=== PATIENT | female | born 1975 | race Caucasian/White ===

== ENCOUNTER 2017-05-27 12:38 | Emergency (ER) | payer BC, OTHER, MEDICAID ==
[~2017-05-27] VITALS: Ht 167.6 cm; Wt 102.1 kg
[~2017-05-27 12:38] MED LIST: FLAGYL500 MG PO; FLONASE 0.05%50 MCG NASAL; GLUCOPHAGE XR500 MG; GLUCOTROL5 MG; HYDROXYZINE HCL25 M1 PO; INPEN (FOR HUM1 EACH SQ; KEFLEX500 M1 PO; NEURONTIN 300300 M1 PO; ZOLOFT50 MG PO
[2017-05-27 13:10] LABS: URINE BILIRUBIN NEGATIVE (Negative); URINE BLOOD NEGATIVE (Negative); URINE CLARITY SL CLOUDY; URINE COLOR YELLOW; URINE GLUCOSE-RANDOM 2+ (Negative); URINE KETONES NEGATIVE (Negative); URINE LEUKOCYTES-REFLEX NEGATIVE (Negative); URINE NITRITE-REFLEX NEGATIVE (Negative); URINE PROTEIN TRACE (Negative); URINE SPECIFIC GRAVITY >= 1.030 (1.005-1.030); URINE UROBILINOGEN 0.2 E.U./dl (0.2-1.0)
[2017-05-27 13:21] LABS: INFLUENZA A ANTIGEN None Detected (None Detect); INFLUENZA B ANTIGEN None Detected (None Detect)
[2017-05-27 13:33] LABS: BACTERIA-REFLEX 1-9 Few /HPF (None Seen); CASTS None Seen /LPF (None Seen); CRYSTALS None Seen /LPF (None Seen); MUCUS 4-6 Moderate strn/LPF (None Seen); SQUAMOUS 0-3 Few /LPF (0-3); URINE RBC 0-2 Rare /HPF (0-2); URINE WBC-REFLEX 0-5 Rare /HPF (0-5)
[2017-05-27] MEDS ORDERED: DIFLUCAN150 MG PO (13:45)
[2017-05-27] MEDS ORDERED: DOXYCYCLINE 10100 M1 PO (13:45)
[2017-05-27] MEDS ORDERED: PROAIR HFA8.5 GM INH (13:47)
[2017-05-27 13:53] VITALS: BP 115/72
== END 2017-05-27 13:54 | disposition home or self-care (01) ==
LOC: M.ERS 12:38
PROVIDERS: Nurse Practitioner Family
DX: N75.1 Abscess of Bartholin's gland (principal); J40 Bronchitis, not specified as acute or chronic; E11.9 Type 2 diabetes mellitus without complications; F41.9 Anxiety disorder, unspecified; F32.9 Major depressive disorder, single episode, unspecified; F43.10 Post-traumatic stress disorder, unspecified; Z88.0 Allergy status to penicillin